=== PATIENT | female | born 1965 | race Caucasian/White ===

== ENCOUNTER 2023-07-31 08:15 | Emergency (ER) | payer SELFPAY | END 2023-07-31 09:43 | disposition home or self-care (01) | LOC: MW.ED 08:15 | DX: Z76.0 Encounter for issue of repeat prescription (principal); R25.1 Tremor, unspecified; Z90.49 Acquired absence of other specified parts of digestive tract; Z90.710 Acquired absence of both cervix and uterus; Z79.899 Other long term (current) drug therapy | CPT/HCPCS: 99281 ==

== ENCOUNTER 2023-08-16 09:59 | Emergency (ER) | payer SELFPAY | END 2023-08-16 11:27 | disposition home or self-care (01) | LOC: MW.ED 09:59 | DX: S02.2XXA Fracture of nasal bones, initial encounter for closed fracture (principal); Z90.49 Acquired absence of other specified parts of digestive tract; Z90.710 Acquired absence of both cervix and uterus; Z79.899 Other long term (current) drug therapy; W01.198A Fall on same level from slipping, tripping and stumbling with subsequent striking against other object, initial encounter | CPT/HCPCS: 70486; 70486-26; 99283 ==

== ENCOUNTER 2023-08-16 14:11 | Emergency (ER) | payer SELFPAY ==
[2023-08-16] MEDS ORDERED: Diphtheria,Pertussis(Acell),Tetanus Vaccine 0.5 ML Syringe IM ONE (14:14)
== END 2023-08-16 15:56 | disposition home or self-care (01) ==
LOC: MW.ED 14:11
DX: S09.90XA Unspecified injury of head, initial encounter (principal); Z23 Encounter for immunization; Z79.899 Other long term (current) drug therapy; Z90.49 Acquired absence of other specified parts of digestive tract; Z90.710 Acquired absence of both cervix and uterus; W11.XXXA Fall on and from ladder, initial encounter
CPT/HCPCS: 70450; 70450-26; 72125; 72125-26; 90471; 90715; 99282; 99284-25

== ENCOUNTER 2023-08-19 17:59 | Emergency (ER) | payer SELFPAY ==
[2023-08-19] MEDS ORDERED: Lidocaine 4% 1 each Patch TOP STA (18:37)
== END 2023-08-19 21:55 | disposition home or self-care (01) ==
LOC: MW.ED 17:59
DX: S22.31XD Fracture of one rib, right side, subsequent encounter for fracture with routine healing (principal); Z90.49 Acquired absence of other specified parts of digestive tract; Z90.710 Acquired absence of both cervix and uterus; Z79.899 Other long term (current) drug therapy; W19.XXXD Unspecified fall, subsequent encounter
CPT/HCPCS: 71101; 99283; A9270

== ENCOUNTER 2023-09-11 11:26 | Emergency (ER) | payer MEDICAID ==
[2023-09-11] MEDS ORDERED: Lidocaine 4% 1 each Patch TOP STA (11:59)
[2023-09-11] MEDS ORDERED: Cyclobenzaprine 10 MG Tab PO STA (11:59)
== END 2023-09-11 12:53 | disposition home or self-care (01) ==
LOC: MW.ED 11:26
DX: S22.31XD Fracture of one rib, right side, subsequent encounter for fracture with routine healing (principal); W19.XXXD Unspecified fall, subsequent encounter; Z79.899 Other long term (current) drug therapy
CPT/HCPCS: 71101; 99283; A9270

== ENCOUNTER 2023-09-23 15:07 | Emergency (ER) | payer MEDICAID ==
[2023-09-23] MEDS ORDERED: Sodium Chloride 0.9% 10 ML Syringe FLUSH PRN (15:17)
[2023-09-23] MEDS ORDERED: Sodium Chloride 0.9% 2.5 ML Syringe FLUSH PRN (15:17)
[2023-09-23 16:01] LABS: BASOPHILS ABSOLUTE AUTO 0.05 K/uL (0.00-0.20); BASOPHILS PERCENT AUTO 0.5 % (0.0-1.0); EOSINOPHILS ABSOLUTE AUTO 0.17 K/uL (0.00-0.45); EOSINOPHILS PERCENT AUTO 1.9 % (0.0-6.0); HEMATOCRIT 36.1 % (37.0-47.0); IMMATURE GRAN ABSOLUTE AUTO 0.04 K/uL (0.00-0.05); IMMATURE GRAN PERCENT AUTO 0.4 % (0.0-0.4); LYMPHOCYTES ABSOLUTE AUTO 2.94 K/uL (1.00-4.80); LYMPHOCYTES PERCENT AUTO 32.2 % (24.0-44.0); MEAN CORPUSCULAR HEMOGLOBIN 31.9 pg (28.0-32.0); MEAN CORPUSCULAR HGB CONC 33.2 g/dL (32.0-36.0); MONOCYTES ABSOLUTE AUTO 0.62 K/uL (0.00-0.80); MONOCYTES PERCENT AUTO 6.8 % (0.0-8.0); NEUTROPHILS ABSOLUTE AUTO 5.31 K/uL (1.80-7.70); NEUTROPHILS PERCENT AUTO 58.2 % (41.0-71.0); PLATELET COUNT,PLT 365 K/uL (150-400); RED BLOOD CELL COUNT 3.76 M/uL (4.10-5.30); WHITE BLOOD CELL COUNT,WBC 9.13 K/uL (3.9-11.3)
[2023-09-23] MEDS ORDERED: Lidocaine 1% with EPINEPHrine 1:100,000 20 ML MDV INJECT ONE (16:01)
[2023-09-23] MEDS ORDERED: Lidocaine 1% with EPINEPHrine 1:200,000 30 ML SDV ONE (16:05)
[2023-09-23] MEDS ORDERED: Acetaminophen 500 MG Tab PO ONE (16:13)
[2023-09-23 16:29] LABS: A/G RATIO 0.9 (0.9-1.6); ALANINE AMINOTRANSFERASE,ALT 45 IU/L (14-63); ALBUMIN 3.8 g/dL (3.4-5.0); ALKALINE PHOSPHATASE 133 U/L (46-116); ASPARTATE AMNIOTRANSFERASE,AST 18 IU/L (15-37); BILIRUBIN TOTAL 0.2 mg/dL (0.2-1.0); BLOOD UREA NITROGEN,BUN 10 mg/dL (7.0-18.0); CALCIUM 9.2 mg/dL (8.5-10.1); CARBON DIOXIDE,CO2 30.9 mmol/L (21.0-32.0); CHLORIDE,CL 102 mmol/L (98-107); CREATININE 0.9 mg/dL (0.6-1.0); EST CRCL DRUG DOSING (CG) 54.55 mL/min; GLUCOSE RANDOM 92 mg/dL (74-106); MAGNESIUM 2.6 mg/dL (1.8-2.4); POTASSIUM,K 4.2 mmol/L (3.5-5.1); PROTEIN TOTAL,TP 7.9 g/dL (6.4-8.2); SODIUM,NA 140 mmol/L (136-145); TSH ULTRASENSITIVE 3.35 uIU/mL (0.36-3.74)
[2023-09-23 16:30] LABS: ESTIMATED GFR 75 mL/min (>60); ETHANOL BLOOD MEDICAL < 3.0 mg/dL
[2023-09-23] MEDS ORDERED: Lidocaine 1% with EPINEPHrine 1:200,000 30 ML SDV INJECT ONE (16:30)
== END 2023-09-23 16:54 | disposition home or self-care (01) ==
LOC: MW.ED 15:07
DX: S01.01XA Laceration without foreign body of scalp, initial encounter (principal); R29.6 Repeated falls; Z90.49 Acquired absence of other specified parts of digestive tract; Z90.710 Acquired absence of both cervix and uterus; W01.0XXA Fall on same level from slipping, tripping and stumbling without subsequent striking against object, initial encounter
CPT/HCPCS: 12001; 36415; 70450; 72125; 80053; 80307; 83735; 84443; 84484; 85025; 93005; 99284; A9270; J3490; 93010; 99283

== ENCOUNTER 2023-10-11 10:39 | Emergency (ER) | payer MEDICAID | END 2023-10-11 11:40 | disposition left against medical advice (07) | LOC: MW.ED 10:39 | DX: S01.01XD Laceration without foreign body of scalp, subsequent encounter (principal); Z48.02 Encounter for removal of sutures | CPT/HCPCS: 99281 ==

== ENCOUNTER 2023-10-18 20:42 | Observation (INO) | payer MEDICAID ==
[2023-10-18 20:57] LABS: BASOPHILS ABSOLUTE AUTO 0.03 K/uL (0.00-0.20); BASOPHILS PERCENT AUTO 0.6 % (0.0-1.0); EOSINOPHILS PERCENT AUTO 4.1 % (0.0-6.0); HEMATOCRIT 32.7 % (37.0-47.0); IMMATURE GRAN ABSOLUTE AUTO 0.01 K/uL (0.00-0.05); IMMATURE GRAN PERCENT AUTO 0.2 % (0.0-0.4); LYMPHOCYTES ABSOLUTE AUTO 1.82 K/uL (1.00-4.80); LYMPHOCYTES PERCENT AUTO 36.9 % (24.0-44.0); MEAN CORPUSCULAR HGB CONC 33.6 g/dL (32.0-36.0); MEAN CORPUSCULAR VOLUME 95.1 fL (83.0-99.0); MEAN PLATELET VOLUME 9.8 fL (9.4-12.3); MONOCYTES PERCENT AUTO 6.1 % (0.0-8.0); NEUTROPHILS ABSOLUTE AUTO 2.57 K/uL (1.80-7.70); NEUTROPHILS PERCENT AUTO 52.1 % (41.0-71.0); PLATELET COUNT,PLT 227 K/uL (150-400); RED BLOOD CELL COUNT 3.44 M/uL (4.10-5.30); WHITE BLOOD CELL COUNT,WBC 4.93 K/uL (3.9-11.3)
[2023-10-18 21:11] LABS: INR 1.12 (0.86-1.11)
[2023-10-18] MEDS: Sodium Chloride 0.9% 2.5 ML Syringe FLUSH PRN (21:13)
[2023-10-18] MEDS: Sodium Chloride 0.9% 10 ML Syringe FLUSH PRN (21:13)
[2023-10-18 21:28] LABS: A/G RATIO 0.9 (0.9-1.6); ALANINE AMINOTRANSFERASE,ALT 39 IU/L (14-63); ALBUMIN 3.1 g/dL (3.4-5.0); ALKALINE PHOSPHATASE 115 U/L (46-116); ASPARTATE AMNIOTRANSFERASE,AST 26 IU/L (15-37); BILIRUBIN TOTAL 0.2 mg/dL (0.2-1.0); BLOOD UREA NITROGEN,BUN 8 mg/dL (7.0-18.0); CALCIUM 8.5 mg/dL (8.5-10.1); CARBON DIOXIDE,CO2 26.6 mmol/L (21.0-32.0); CHLORIDE,CL 103 mmol/L (98-107); CREATININE 0.8 mg/dL (0.6-1.0); EST CRCL DRUG DOSING (CG) 72.63 mL/min; GLUCOSE RANDOM 84 mg/dL (74-106); POTASSIUM,K 3.6 mmol/L (3.5-5.1); PROTEIN TOTAL,TP 6.6 g/dL (6.4-8.2); SODIUM,NA 130 mmol/L (136-145)
[2023-10-18 21:29] LABS: ESTIMATED GFR 86 mL/min (>60)
[2023-10-18 21:31] LABS: ETHANOL BLOOD MEDICAL < 3.0 mg/dL
[2023-10-18] MEDS: Sodium Chloride 0.9% 1,000 ML IV ONE (21:47)
[2023-10-18] MEDS: Iopamidol 755 MG/ML 500 ML Multipack Bottle IVPUSH ONE (22:08)
[2023-10-18 23:55] LABS: AMPHETAMINES SCREEN, URINE NEGATIVE (CUTOFF=500); BARBITURATE SCREEN,URINE NEGATIVE (CUTOFF=200); BENZODIAZEPINES SCREEN,URINE PRESUMPTIVE POSITIVE (CUTOFF=150); BUPRENORPHINE SCREEN,URINE NEGATIVE (CUTOFF=10); METHADONE SCREEN, URINE NEGATIVE (CUTOFF=200); METHAMPHETAMINES SCREEN, URINE NEGATIVE (CUTOFF=500); OXYCODONE SCREEN,URINE PRESUMPTIVE POSITIVE (CUT0FF=100); PCP SCREEN,URINE NEGATIVE (CUTOFF=25); THC SCREEN,URINE 20 NG/ML NEGATIVE (CUTOFF=50)
[2023-10-19] MEDS ORDERED: Acetaminophen 325 MG Tab PO PRN ×2 (04:43→07:22)
[2023-10-19] MEDS: Acetaminophen/oxyCODONE 325-5 MG Tab PO PRN (05:07)
[2023-10-19 05:56] LABS: BASOPHILS ABSOLUTE AUTO 0.03 K/uL (0.00-0.20); BASOPHILS PERCENT AUTO 0.6 % (0.0-1.0); EOSINOPHILS ABSOLUTE AUTO 0.14 K/uL (0.00-0.45); EOSINOPHILS PERCENT AUTO 2.8 % (0.0-6.0); HEMATOCRIT 29.8 % (37.0-47.0); IMMATURE GRAN ABSOLUTE AUTO 0.01 K/uL (0.00-0.05); IMMATURE GRAN PERCENT AUTO 0.2 % (0.0-0.4); LYMPHOCYTES ABSOLUTE AUTO 1.39 K/uL (1.00-4.80); MEAN CORPUSCULAR HEMOGLOBIN 31.6 pg (28.0-32.0); MEAN CORPUSCULAR HGB CONC 33.6 g/dL (32.0-36.0); MEAN CORPUSCULAR VOLUME 94.3 fL (83.0-99.0); MEAN PLATELET VOLUME 10.3 fL (9.4-12.3); MONOCYTES ABSOLUTE AUTO 0.35 K/uL (0.00-0.80); NEUTROPHILS ABSOLUTE AUTO 3.05 K/uL (1.80-7.70); NEUTROPHILS PERCENT AUTO 61.4 % (41.0-71.0); PLATELET COUNT,PLT 202 K/uL (150-400); RED BLOOD CELL COUNT 3.16 M/uL (4.10-5.30); WHITE BLOOD CELL COUNT,WBC 4.97 K/uL (3.9-11.3)
[2023-10-19 06:17] LABS: CALCIUM 8.4 mg/dL (8.5-10.1); CREATININE 0.6 mg/dL (0.6-1.0); EST CRCL DRUG DOSING (CG) 81.82 mL/min; POTASSIUM,K 3.6 mmol/L (3.5-5.1)
[2023-10-19] MEDS ORDERED: Ondansetron 4 MG/2 ML SDV IVPUSH PRN (07:22)
[2023-10-19 07:53] LABS: HEMOGLOBIN A1C 5.1 %
[2023-10-19 08:02] LABS: TSH ULTRASENSITIVE 1.93 uIU/mL (0.36-3.74)
[2023-10-19] MEDS: Pantoprazole 40 MG Tab.CR PO SCH (08:56)
[2023-10-19 09:41] LABS: APPEARANCE,URINE CLEAR; BILIRUBIN,URINE NEGATIVE (NEGATIVE); COLOR,URINE YELLOW; GLUCOSE,URINE NEGATIVE (NEGATIVE); KETONES,URINE NEGATIVE (NEGATIVE); LEUKOCYTE ESTERASE,URINE TRACE (NEGATIVE); NITRITE,URINE POSITIVE (NEGATIVE); OCCULT BLOOD,URINE TRACE-INTACT (NEGATIVE); PH,URINE 5.5 (5.0-8.0); PROTEIN,URINE NEGATIVE (NEGATIVE); UROBILINOGEN,URINE 0.2 EU/dL (<2.0)
[2023-10-19 09:53] LABS: BACTERIA,URINE 2+ (NEGATIVE); EPITHELIAL CELLS,URINE OCCASIONAL (NONE-FEW); RBC,URINE 0-2 (0-2/HPF)
[2023-10-19] MEDS ORDERED: LORazepam 2 MG/ML SDV IVPUSH PRN (10:53)
[2023-10-19] MEDS ORDERED: cefTRIAXone 1 GM in Sodium Chloride 0.9% 50 ML IV SCH (11:00)
[2023-10-19] MEDS ORDERED: LORazepam 1 MG Tab PO ONE (11:57)
[2023-10-19] MEDS: LORazepam 2 MG/ML SDV IVPUSH ONE (12:30)
[2023-10-19] MEDS: Gadobenate Dimeglumine 529 MG/ML 20 ML SDV IVPUSH STA (12:53)
[2023-10-19] MEDS: cefTRIAXone 1 GM in Sodium Chloride 0.9% 50 ML IV SCH (13:13)
[2023-10-19] MEDS ORDERED: QUEtiapine 100 MG Tab PO SCH (21:00)
[2023-10-19] MEDS ORDERED: Melatonin 3 MG Tab PO PRN (21:00)
== END 2023-10-19 14:30 | disposition home or self-care (01) ==
LOC: MW.ED 20:42 → MW.MS 10-19 01:58
PROVIDERS: ADMIT Internal Medicine; ATTEND Internal Medicine
DX: R47.81 Slurred speech (principal); R26.81 Unsteadiness on feet; I10 Essential (primary) hypertension; N39.0 Urinary tract infection, site not specified; M25.522 Pain in left elbow; K21.9 Gastro-esophageal reflux disease without esophagitis; E78.5 Hyperlipidemia, unspecified; Z87.891 Personal history of nicotine dependence; Z79.899 Other long term (current) drug therapy; W19.XXXA Unspecified fall, initial encounter
CPT/HCPCS: 36415; 70450; 70496; 70498; 70553; 71045; 73080; 80048; 80053; 80061; 80305; 80307; 81001; 83036; 83735; 84443; 84484; 85025; 85610; 87086; 93005; 96360; 99285; A9270; A9577; J0696; J2060; J3490; J7030; Q9967; 87088; 87186; 93010; 96361; 96365; 96375; 99284; G0378

== ENCOUNTER 2023-11-26 09:32 | Emergency (ER) | payer MEDICAID | END 2023-11-26 11:02 | disposition home or self-care (01) | LOC: MW.ED 09:32 | DX: G89.29 Other chronic pain (principal); M25.512 Pain in left shoulder; K21.9 Gastro-esophageal reflux disease without esophagitis; Z86.19 Personal history of other infectious and parasitic diseases; Z90.49 Acquired absence of other specified parts of digestive tract; Z90.710 Acquired absence of both cervix and uterus; Z75.8 Other problems related to medical facilities and other health care | CPT/HCPCS: 73030-26-LT; 73030-LT; 99282; 99283 ==

== ENCOUNTER 2023-12-25 06:18 | Day surgery (SDC) | payer MEDICAID ==
[2023-12-25] MEDS ORDERED: Lidocaine 2% 5 ML SDV ONE (06:39)
[2023-12-25] MEDS ORDERED: Dexamethasone 4 MG/ML 5 ML MDV ONE (06:39)
[2023-12-25] MEDS ORDERED: Rocuronium Bromide 50 MG/5 ML Syringe ONE (06:39)
[2023-12-25] MEDS ORDERED: Ketorolac 30 MG/ML SDV ONE (06:39)
[2023-12-25] MEDS ORDERED: fentaNYL 100 MCG/2 ML SDV ONE (06:39)
[2023-12-25] MEDS ORDERED: Sugammadex Sodium 200 MG/2 ML VIAL IV ONE (06:39)
[2023-12-25] MEDS ORDERED: Magnesium Sulfate (4.06 MEQ/ML) 5 GM/10 ML SDV ONE (06:39)
[2023-12-25] MEDS ORDERED: Ondansetron 4 MG/2 ML SDV ONE (06:39)
[2023-12-25] MEDS ORDERED: propofoL 50 ML ONE (06:43)
[2023-12-25] MEDS ORDERED: Morphine 2 MG/ML SYRINGE IVPUSH PRN (06:52)
[2023-12-25] MEDS ORDERED: Metoclopramide 10 MG/2 ML SDV IVPUSH PRN (06:52)
[2023-12-25] MEDS ORDERED: HYDROmorphone 1 MG/ML Syringe IVPUSH PRN (06:52)
[2023-12-25] MEDS ORDERED: fentaNYL 50 MCG/ML SDV IVPUSH PRN (06:52)
[2023-12-25] MEDS ORDERED: droPERidol 5 MG/2 ML SDV IVPUSH PRN (06:52)
[2023-12-25] MEDS ORDERED: Ondansetron 4 MG/2 ML SDV IVPUSH PRN (06:52)
[2023-12-25] MEDS ORDERED: Naloxone 0.4 MG/ML SDV IVPUSH PRN (06:52)
[2023-12-25] MEDS ORDERED: Albuterol 0.083% 2.5 MG/3 ML Neb Soln NEB PRN (06:52)
[2023-12-25] MEDS: Lactated Ringers 1,000 ML IV SCH (06:55)
[2023-12-25] MEDS ORDERED: Bupivacaine 0.5% 30 ML SDV ONE (07:17)
[2023-12-25] MEDS ORDERED: Bupivacaine 0.5%/EPINEPHrine 1:200,000 30 ML SDV ONE (07:22)
[2023-12-25] MEDS ORDERED: ceFAZolin 2 GM Vial ONE (07:38)
[2023-12-25] MEDS ORDERED: Metoclopramide 10 MG/2 ML SDV ONE (07:38)
[2023-12-25] MEDS ORDERED: Phenylephrine HCl In 0.9% NaCl 1 MG/10 ML Syringe ONE (07:52)
[2023-12-25] MEDS ORDERED: Glycopyrrolate 0.2 MG/ML SDV ONE (07:52)
[2023-12-25] MEDS ORDERED: ceFAZolin 2 GM in Sodium Chloride 0.9% 50 ML IV ONE (08:00)
== END 2023-12-25 10:13 | disposition home or self-care (01) ==
LOC: MW.SDS 06:18
PROVIDERS: ATTEND Orthopaedic Surgery
DX: T84.84XA Pain due to internal orthopedic prosthetic devices, implants and grafts, initial encounter (principal); S42.009A Fracture of unspecified part of unspecified clavicle, initial encounter for closed fracture; F41.9 Anxiety disorder, unspecified; F31.81 Bipolar II disorder; K21.9 Gastro-esophageal reflux disease without esophagitis; I95.1 Orthostatic hypotension; Z79.899 Other long term (current) drug therapy; Z98.890 Other specified postprocedural states; Y83.8 Other surgical procedures as the cause of abnormal reaction of the patient, or of later complication, without mention of misadventure at the time of the procedure
CPT/HCPCS: 20680; 64415; 73020; J0131; J0665; J0690; J1100; J1885; J2371; J2704; J2765; J3010; J3475; J3490; J7120; J2405

== ENCOUNTER 2024-04-25 14:25 | Emergency (ER) | payer MEDICAID | END 2024-04-25 17:19 | disposition left against medical advice (07) | LOC: MW.ED 14:25 | DX: Z53.21 Procedure and treatment not carried out due to patient leaving prior to being seen by health care provider (principal) ==

== ENCOUNTER 2024-04-26 14:35 | Emergency (ER) | payer MEDICAID | END 2024-04-26 17:03 | disposition left against medical advice (07) | LOC: MW.ED 14:35 | DX: M79.89 Other specified soft tissue disorders (principal); Z98.890 Other specified postprocedural states; K21.9 Gastro-esophageal reflux disease without esophagitis; Z90.49 Acquired absence of other specified parts of digestive tract; Z90.710 Acquired absence of both cervix and uterus; Z79.899 Other long term (current) drug therapy | CPT/HCPCS: 99283 ==

== ENCOUNTER 2024-12-25 16:50 | Emergency (ER) | payer BC, MEDICAID, OTHER ==
[2024-12-25] MEDS: Acetaminophen 500 MG Tab PO ONE (18:08)
[2024-12-25] MEDS ORDERED: Sodium Chloride 0.9% 2.5 ML Syringe FLUSH PRN (18:24)
[2024-12-25] MEDS ORDERED: Sodium Chloride 0.9% 20 ML SDV IV PRN (18:24)
[2024-12-25] MEDS ORDERED: Sodium Chloride 0.9% 10 ML Syringe FLUSH PRN (18:24)
[2024-12-25 21:07] LABS: BASOPHILS ABSOLUTE AUTO 0.03 K/uL (0.00-0.20); BASOPHILS PERCENT AUTO 0.5 % (0.0-1.0); EOSINOPHILS ABSOLUTE AUTO 0.24 K/uL (0.00-0.45); EOSINOPHILS PERCENT AUTO 4.3 % (0.0-6.0); HEMATOCRIT 32.7 % (37.0-47.0); IMMATURE GRAN ABSOLUTE AUTO 0.01 K/uL (0.00-0.05); IMMATURE GRAN PERCENT AUTO 0.2 % (0.0-0.4); LYMPHOCYTES ABSOLUTE AUTO 1.69 K/uL (1.00-4.80); MEAN CORPUSCULAR HEMOGLOBIN 30.9 pg (28.0-32.0); MEAN CORPUSCULAR HGB CONC 33.6 g/dL (32.0-36.0); MEAN CORPUSCULAR VOLUME 91.9 fL (83.0-99.0); MEAN PLATELET VOLUME 9.6 fL (9.4-12.3); MONOCYTES ABSOLUTE AUTO 0.39 K/uL (0.00-0.80); MONOCYTES PERCENT AUTO 6.9 % (0.0-8.0); NEUTROPHILS ABSOLUTE AUTO 3.27 K/uL (1.80-7.70); NEUTROPHILS PERCENT AUTO 58.1 % (41.0-71.0); PLATELET COUNT,PLT 242 K/uL (150-400); RED BLOOD CELL COUNT 3.56 M/uL (4.10-5.30); WHITE BLOOD CELL COUNT,WBC 5.63 K/uL (3.9-11.3)
[2024-12-25 21:20] LABS: INR 1.01 (0.86-1.11); PTT,PARTIAL THROMBOPLSTIN TIME 24.7 SEC (23.9-30.7)
[2024-12-25 21:35] LABS: A/G RATIO 1.2 (0.9-1.6); ALBUMIN 3.8 g/dL (3.4-5.0); BILIRUBIN TOTAL 0.3 mg/dL (0.2-1.0); CALCIUM 8.9 mg/dL (8.5-10.1); CREATININE 0.8 mg/dL (0.6-1.0); EST CRCL DRUG DOSING (CG) 60.62 mL/min; MAGNESIUM 2.1 mg/dL (1.8-2.4); POTASSIUM,K 4.4 mmol/L (3.5-5.1); PROTEIN TOTAL,TP 7.1 g/dL (6.4-8.2)
[2024-12-25] MEDS: Lidocaine 1% with EPINEPHrine 1:100,000 10 ML MDV INJECT ONE (22:05)
== END 2024-12-25 22:28 | disposition home or self-care (01) ==
LOC: MW.ED 16:50
DX: R55 Syncope and collapse (principal); S01.91XA Laceration without foreign body of unspecified part of head, initial encounter; Z79.899 Other long term (current) drug therapy; Z90.49 Acquired absence of other specified parts of digestive tract; Z90.710 Acquired absence of both cervix and uterus; W01.198A Fall on same level from slipping, tripping and stumbling with subsequent striking against other object, initial encounter
CPT/HCPCS: 12002; 36415; 70450; 71046; 72125; 80053; 82550; 83735; 83880; 84484; 85025; 85610; 85730; 93005; 99284; A9270